=== PATIENT | male | born 1985 | race Caucasian/White ===

== ENCOUNTER 2024-08-02 14:13 | Emergency (ER) | payer SELFPAY ==
[2024-08-02 14:16] VITALS: BP 153/98; PULSE 92; TEMP 36.6; O2SAT 97; BMI 31.6
--- NOTE | 2024-08-02 15:14 | ED_ITS ---
HPI - Eye Problem General Chief complaint: Eye Problems Stated complaint: EYE PAIN Time Seen by Provider: 08/02/24 15:01 Source: patient Mode of arrival: walk-in History of Present Illness HPI Narrative: 39 year old male presents to the ED for left eye irritation, photophobia. Onset was 07/29/24. 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 He felt something go into his eye. States the photophobia has since improved. Denies vision changes, drainage, itching. He does not want a tetanus update today; he is aware of the risks of refusal. Related Data Previous Rx's ?Medication ?Instructions ?Recorded ofloxacin 0.3 % eye drops (Ocuflox) 2 drp ophthalmic ( eye) QID 10 days 08/02/24 #5 mL Allergies Allergy/AdvReac Type Severity Reaction Status Date / Time No Known Drug Allergies Allergy Verified 08/02/24 14:19 Review of Systems ROS Constitutional Denies: fever or chills Eyes Reports: light sensitivity and eye discomfort; Denies: blurry vision, floaters or seeing flashes Cardiovascular Denies: chest pain Respiratory Denies: shortness of breath Neurological Denies: headache or dizziness PFSH PFSH Social History Little interest or pleasure in doing things: not at all Feeling down, depressed, or hopeless: not at all Exam Constitutional Vital Signs, click to edit/add: Last Vital Signs Temp 97.9 F 08/02/24 14:16 Pulse 92 H 08/02/24 14:16 Resp 18 08/02/24 15:43 BP 135/93 H 08/02/24 15:43 Pulse Ox 100 08/02/24 15:43 O2 Del Method Room Air 08/02/24 15:43 HENMT Common normals: moist oral mucous membranes Eye Common normals: PERRL, EOMs intact bilaterally, conjunctivae normal and no scleral icterus Cornea: fluorescein used and other (Corneal abrasion at 6 o'clock. Rust ring n oted. No FB noted.) Other: Left eye was anesthetized with tetracaine, stained with a fluorescein strip, and examined with a wood's lamp. Respiratory Common normals: normal respiratory effort Effort & inspection: able to speak in complete sentences and symmetric chest movement Cardio Common normals: regular rate Neuro Common normals: oriented x3, moves all extremities and no focal motor deficits Sensorium/orientation: awake and alert Speech: speech normal Course Vital Signs Vital signs: Vital Signs Temperature 97.9 F 08/02/24 14:16 Pulse Rate 92 H 08/02/24 14:16 Respiratory Rate 18 08/02/24 14:16 Blood Pressure 153/98 H 08/02/24 14:16 Pulse Oximetry 97 08/02/24 14:16 Oxygen Delivery Method Room Air 08/02/24 14:16 Temperature 97.9 F 08/02/24 14:16 Pulse Rate 92 H 08/02/24 14:16 Respiratory Rate 18 08/02/24 15:43 Blood Pressure 135/93 H 08/02/24 15:43 Pulse Oximetry 100 08/02/24 15:43 Oxygen Delivery Method Room Air 08/02/24 15:43 MDM - Eye Problem MDM Narrative Medical decision making narrative: Corneal abrasion and rust ring were noted. Pt declined a tetanus update; he is aware of the risks. A prescription was provided for Ocuflox. He was encouraged to follow up with an cold press operator within the next few days for a recheck, further evaluation and treatment. Differential Diagnosis Differential diagnosis: Likely corneal abrasion, conjunctivitis, corneal ulcer and other (FB) Discharge Plan Discharge Chief Complaint: Eye Problems Clinical Impression: Corneal abrasion, Corneal rust ring Patient Disposition: Home, Self-Care Time of Disposition Decision: 15:27 Condition: Good Mode of Transportation: Private Vehicle Prescriptions / Home Meds: New ofloxacin [Ocuflox] 0.3 % drops 2 drp ophthalmic (eye) QID 10 Days Qty: 5 0RF Print Language: Kiswahili Instructions: Corneal Abrasion (ED) Additional Instructions: Follow up with an cold press operator within the next 2-3 days. Referrals: Physician,Non-Staff, MD [Primary Care Provider] - 1 week Discharge Date/Time: 08/02/24 15:44
[2024-08-02] MEDS: FLUORESCEIN SODIUM 1 MG STRIP OP (15:15)
[2024-08-02] MEDS: TETRACAINE HCL 0.5% OP SOL 80 DROP/4 ML BOTTLE OP (15:16)
[2024-08-02 15:43] VITALS: BP 135/93; O2SAT 100
== END 2024-08-02 15:44 | disposition home or self-care (01) ==
PROVIDERS: Emergency Provider Emergency Medicine
DX: T15.02XA Foreign body in cornea, left eye, initial encounter (principal); H57.12 Ocular pain, left eye; H53.142 Visual discomfort, left eye
CPT/HCPCS: 99284